=== PATIENT | female | born 2000 | race Caucasian/White ===

== ENCOUNTER 2025-02-16 18:35 | Emergency (ER) | payer OTHER, SELFPAY ==
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
[2025-02-16 18:33] VITALS: BP 144/104; PULSE 110; RESP 26; TEMP 36.8; O2SAT 100
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
--- OUTSIDE RECORDS SUMMARY | 2025-02-16 19:26 | XMS_ITS | Clinical Summary ---
Author Organization [facility] Address [address] [place] [address] Care Team Providers Care Pcts Name Role Phone Han Mcfadden NP Primary Care Provider Unavailabl e Allergies Active Allergy Reactions Criticality Noted Date Comments Unclassified Drug Vomiting Low 08/23/2021 Ondansetron Nausea & Vomiting Low 10/21/2023 Medications spironolactone (ALDACTONE) 100 mg tablet Take 0.5 tablets (50 mg total) by mouth daily 2 Active benzonatate (TESSALON) 200 mg capsuleIndication s:Acute non-recurrent pansinusitis Take 1 capsule (200 mg total) by mouth 3 (three) times a day as needed for cough 30 capsule 4 Active Active Problems Problem Noted Date Diagnosed Date Migraine without aura and wi thout status migrainosus, not intractable 01/11/2018 Overview (08/19/2022): Last Assessment & Plan: Headaches are much improved. No indication for any further preventative medication at this time. 1. Keep headache diary 2. Maintain active lifestyle 3. Eat healthy diet, and do not skip meals 4. Drink plenty of water, and avoid caffeine regularly. 5. Sleep: 1. Maintain good sleep routine. 2. Avoid distractions at bedtime such as TV, computer. 3. Get at least 8-10 hours of sleep nightly 4. Limit daytime naps 6. Do not use pain medication (such as Tylenol, Ibuprofen) more than 2-3 times/week in order to avoid medication overuse headaches 7. Use Aleve as needed only for moderate-severe headache. 8. Call for any ongoing concerns, if any. 9. Follow up as needed. Fracture of phalanx of thumb 03/23/2014 Immunizations Immunization Administration Dates Next Due DTaP 12/29/2005, 2,06/01/2001,04/02,01/25/2001 HPV, Quadrivalent 09/21/2013,04/08/2013,02/03/20 13 Hep A, Pediatric 01/28/2012,11/04/2010 Hep B, Adolescent or Pediatric 02/18/2002,2001,06/01/2001 HiB 02/18/2002, 1,04/02/2001,01/25 IPV 12/29/2005, 2,04/02/2001,01/25 Influenza LAIV (Nasal) 04/08/2013,02/14/2011 Influenza, Quadrivalent, Spl it, Pediatric, Preservative Free, Intramuscular 03/05/2016 Influenza, Trivalent, IM (MDV) 03/13/2008,2006,04/06/2007 MMR 12/29/2005,02/18/2002 Meningococcal B, OMV (Bexsero) 12/14/2017,2017 Meningococcal MCV4P (Menactra) 11/11/2017,2011 Td, adsorbed 11/29/2019 Tdap 01/28/2012 Varicella 11/04/2010,02/18/2002 Social History Tobacco Use Types Packs/Day Years Used Date Smoking Tobacco: Never Tobacco Cessation:Counseling Given: Not Answered Personal Safety Answer Date Recorded Getting School Help Needed Not on file 09/04 Comments Unknown Sex and Gender Information Value Date Recorded Sex Assigned at Not on file Legal Sex Female 4:32 AM [employer] Gender Identity Not on file Sexual Orientation Not on file Obstetrics History Last Filed Vital Signs Vital Sign Reading Time Taken Comments Blood Pressure 128/86 10/21/2023 9:48 AM CDT Pulse 90 10/21/2023 9:48 AM CDT Temperature 37.1 C (98.8 F) 10/21/2023 9:48 AM CDT Respiratory Rate 20 10/21/2023 9:48 AM CDT Oxygen Saturation 98% 10/21/2023 9:48 AM CDT Inhaled Oxygen Concentration - - Weight 78 kg (172 lb) 10/21/2023 9:48 AM CDT Height 165.1 cm (5' 5) 10/21/2023 9:48 AM CDT Body Mass Index 28.62 10/21/2023 9:48 AM CDT Plan of Treatment Health Maintenance Due Date Last Done Comments Cervical Cancer Screening 2000 Depression Screening 2000 Hepatitis C Screening 2000 Regular Well Visit/Exam 18-64 2018 Covid-19 Vaccine ( season) 2024 06/18/2021, 08/30/2020 Influenza Vaccine (#1) 2025 6, 04/08/2013, 02/14/2011, Additional history exists DTaP/Tdap/Td Vaccine (8 - Td or Tdap) 11/28/2029 11/29/2019, 01/28/2012, 12/29/2005, Additional history exists Hepatitis B Screening Completed 02/18/2002 , 09/07/2001, 06/01/2001 Varicella Vaccines Completed 11/04/2010, 02/18/2002 HPV Vaccines Completed 09/21/2013, 03/22, 02/02/2013 Pneumococcal vaccine <65 Aged Out No longer eligible based on patient's age to complete this topic [place] [address] [place] [phone] [employer] Care Teams Pcts Relationship Specialty Start Date End Date Han Mcfadden NP PCP - General 11/29/19
[2025-02-16] MEDS: TETANUS,DIPHTHERIA,AC PERTUSSIS ADULT (0.5 ML) BOOSTRIX IM (19:40)
[2025-02-16] MEDS: ACETAMINOPHEN 500 MG TABLET 1000 MG PO (19:40)
[2025-02-16 20:31] VITALS: BP 131/86; PULSE 88; RESP 16; O2SAT 98
== END 2025-02-16 20:36 | disposition home or self-care (01) ==
PROVIDERS: Emergency Provider Emergency Medicine; PCP Pediatrics
DX: S80.812A Abrasion, left lower leg, initial encounter (principal); Z23 Encounter for immunization; V43.62XA Car passenger injured in collision with other type car in traffic accident, initial encounter
CPT/HCPCS: 73562; 73590; 90471; 90715; 99284; A9270